=== PATIENT | male | born 1940 ===

== ENCOUNTER → 2018-10-24 | Outpatient (CLI) | payer MEDICARE, OTHER | END | disposition home or self-care (01) | LOC: PLD 10:06 → LAB SHORT 10:06 | DX: L82.1 Other seborrheic keratosis (principal) | CPT/HCPCS: 88305 ==

== ENCOUNTER → 2019-10-24 | Outpatient (CLI) | payer MEDICARE, OTHER | END | disposition home or self-care (01) | LOC: PLD 11:42 → LAB SHORT 11:42 | DX: L82.1 Other seborrheic keratosis (principal) | CPT/HCPCS: 88305 ==

== ENCOUNTER 2021-08-16 12:39 | Inpatient (IN) | payer MEDICARE, OTHER ==
[~2021-08-16] VITALS: Ht 182.9 cm; Wt 86.5 kg
[2021-08-16 14:11] LABS: Hematocrit 35.3 % (37.0-53.0); Hemoglobin 11.8 g/dL (13.5-17.5); Mean Corpuscular HGB Conc 33.4 g/dL (31.5-36.5); Mean Corpuscular Volume 87 fL (80-100); Mean Platelet Volume 11.7 fL (9.1-12.4); Platelet Count 169 K/mm3 (150-400); RDW Coefficient Variation 16.3 % (11.7-14.2); RDW Standard Deviation 51.8 fL (35.1-46.3); Red Blood Cell Count 4.07 M/mm3 (4.30-5.90); White Blood Cell Count 9.44 K/mm3 (4.00-11.30)
[2021-08-16 14:38] LABS: Albumin, Blood 3.5 g/dL (3.4-5.0); Bilirubin, Total 0.5 mg/dL (0.1-1.0); Bun/Creatinine Ratio 29.9 (12.0-20.0); Calcium, Blood 8.5 mg/dL (8.5-10.1); Creatinine, Blood 2.11 mg/dL (0.60-1.20); Globulin, Blood 3.6 g/dL (2.2-4.0); Potassium, Blood 4.9 mmol/L (3.5-5.5); Total Protein, Blood 7.1 g/dL (6.4-8.2)
[2021-08-16 15:48] LABS: International Normalized Ratio 1.17; Prothrombin Time Results 12.2 Sec (9.7-11.5)
[2021-08-16 16:14] LABS: Influenza A, PCR NEGATIVE (NEGATIVE); Influenza B, PCR NEGATIVE (NEGATIVE); Resp Syncytial Virus, PCR NEGATIVE (NEGATIVE); SARS-Cov-2 (COVID-19) PCR, MMC NEGATIVE (NEGATIVE)
[2021-08-16] MEDS ORDERED: ATOR20 PO (17:53)
[2021-08-16] MEDS ORDERED: LOSARTAN-HCTZ1 EAC5 PO (17:55)
[2021-08-16] MEDS ORDERED: OMEP20ER PO (17:55)
[2021-08-16] MEDS ORDERED: Naproxen Sodiu220 MG PO (17:56)
[2021-08-16] MEDS ORDERED: CENTRUM SILVER1 EAC2 PO (17:57)
[2021-08-16] MEDS ORDERED: OCUVITE PO (17:57)
--- NOTE | 2021-08-16 19:00 | NUR ---
ADMIT NOTE PT TO ROOM AT APPROX 1250, DIRECTLY ADMITTED PER DR LUNA. PT ORIENTED TO ROOM AND CALL LIGHT. EDUCATED ON FALL RISK. PER TELE PT 3RD DEGREE HEART BLOCK, ASSYMPTOMATIC AT THIS TIME. ELEVATED BP NOTE, DR LUNA NOTIFIED NEW ORDER FOR HYDRALAZINE. PT A&Ox4; [place]; CALM AND COOPERATIVE WITH CARE. PT DENIES PAIN, CHEST PAIN, SOB, [place] AND DIZZINESS. PLANS FOR NPO AT ME FOR PACEMAKER PLACEMENT TOMORROW. OTHER VSS. NO OTHER ACUTE CHANGES NOTED. REPORT GIVEN TO ONCOMING RN.
--- NOTE | 2021-08-17 00:33 | NUR ---
CHEST DISCOMFORT AT 0000 PT REPORTED HE HAD BEEN HAVING NEW ONSET 4/10 MID STERNUM CHEST DISCOMFORT FOR PAST HR, REPORTED IT FELT IF HE WAS LYING ON A ROCK. SPO2 @88% ON RA, PLACED PT ON 2L O2. PERFORMED EKG, NO ST CHANGES NOTED. PT ALSO HAD EPISODE OF HEMOPTYSIS WHILE EKG BEING PERFORMED. INFORMED DR LUNA OF NEW CHANGES c PT & NO NEW ORDERS GIVEN. WILL CONTINUE TO MONITOR.
--- NOTE | 2021-08-17 05:58 | NUR ---
SHIFT SUMMARY AOX4. TELE: 3RD DEGREE HB @40. TELE REPORTED PT HAVING OCCASIONAL EPISODES OF ST DEPRESSION & THEN CONVERTING OUT, SENT RHYTHM STRIPS, IN CHART. EKG DONE & NO CHANGES NOTED. HAS BECOME MORE SOB c MINIMAL EXERTION T/O NIGHT, INCLUDING MOVING TO SIDE OF BED. SPO2 @84-88% ON RA. RR REACHING 30BPM DURING EXERTION. PLACED ON 2L O2. LS COARSE T/O. HAD MULTIPLE EPISODES BRIGHT AMMY RED HEMOPTYSIS, MODERATE AMOUNT. REPORTS NOT COUGHING UP BLOOD BEFORE COMING TO HOSPITAL. REPORTS 2-12/19 MIDSTERNUM CP. DENIES N/V OR DIZZINESS. BEEN NPO SINCE MIDNIGHT FOR PACKEMAKER PLACEMENT TODAY. HYDRALAZINE GIVEN PRN FOR HTN PER EMAR. CALL LIGHT IN REACH. WCTM UNTIL DAY NURSE ASSUMES CARE.
--- NOTE | 2021-08-17 07:18 | NUR ---
patient taken to laborer wrecking and salvaging
[2021-08-17 10:24] LABS: BASOPHILS ABSOLUTE AUTO 0.03 K/mm3 (0.00-0.23); BASOPHILS PERCENT AUTO 0 % (0-2); EOSINOPHILS PERCENT AUTO 0 % (0-6); Hematocrit 36.7 % (37.0-53.0); Hemoglobin 12.5 g/dL (13.5-17.5); IMMATURE GRAN ABSOLUTE AUTO 0.23 K/mm3 (0.00-0.10); IMMATURE GRAN PERCENT AUTO 1 % (0-1); LYMPHOCYTES PERCENT AUTO 5 % (21-46); MONOCYTES ABSOLUTE AUTO 1.23 K/mm3 (0.16-1.47); MONOCYTES PERCENT AUTO 8 % (4-13); Mean Corpuscular HGB Conc 34.1 g/dL (31.5-36.5); Mean Corpuscular Volume 85 fL (80-100); Mean Platelet Volume 11.4 fL (9.1-12.4); NEUTROPHILS PERCENT AUTO 86 % (41-73); NRBC ABSOLUTE 0.02 K/mm3 (0.00-0.02); NRBC Auto 0.1 /100 WBC (0.0-0.2); Platelet Count 164 K/mm3 (150-400); RDW Coefficient Variation 16.5 % (11.7-14.2); RDW Standard Deviation 50.9 fL (35.1-46.3); Red Blood Cell Count 4.31 M/mm3 (4.30-5.90); White Blood Cell Count 16.09 K/mm3 (4.00-11.30)
[2021-08-17 10:41] LABS: Bun/Creatinine Ratio 27.9 (12.0-20.0); Creatinine, Blood 2.47 mg/dL (0.60-1.20); Potassium, Blood 4.4 mmol/L (3.5-5.5)
[2021-08-17 11:43] LABS: Source, Urine Clean Catch
[2021-08-17 11:46] LABS: Appearance, Urine Clear (Clear); Bilirubin, Urine Neg (Neg); Blood, Urine Neg (Neg); Color, Urine Yellow (P-Yellow); Glucose Qualitative, Urine Neg (Neg); Ketones, Urine Neg (Neg); Leukocyte Esterase, Urine Neg (Neg); Nitrite, Urine Neg (Neg); Protein, Urine 3+ (Neg); Urobilinogen, Urine NORM (Normal)
[2021-08-17 12:02] LABS: Bacteria Few /hpf; Red Blood Cells, Urine 0-2 /hpf (0-2); Spermatozoa Rare /hpf; Squamous Epithelial Cells Rare /hpf (Few); White Blood Cells, Urine 0-2 /hpf (0-5)
[2021-08-17 14:09] LABS: Source, Urine Catheter
[2021-08-17 14:21] LABS: Appearance, Urine Clear (Clear); Bilirubin, Urine Neg (Neg); Blood, Urine Neg (Neg); Color, Urine Yellow (P-Yellow); Glucose Qualitative, Urine Neg (Neg); Ketones, Urine Neg (Neg); Leukocyte Esterase, Urine Neg (Neg); Nitrite, Urine Neg (Neg); Protein, Urine 2+ (Neg); Urobilinogen, Urine NORM (Normal)
[2021-08-17 15:08] LABS: Amorphous Light (0-Heavy); Bacteria Rare /hpf; Red Blood Cells, Urine 0-2 /hpf (0-2); Squamous Epithelial Cells Rare /hpf (Few); White Blood Cells, Urine 0-2 /hpf (0-5)
--- NOTE | 2021-08-17 18:05 | NUR ---
SHIFT SUMMARY PT TO DIRECTOR OF PHILANTHROPY THIS AM; BACK TO ROOM, BP ELEVATED, NOTIFIFED DR LUNA. PT A&Ox4; CALM AND COOPERATIVE WITH CARE. PT DENIES PAIN, CHEST PAIN, NAUSEA AND DIZZINESS. NEW ORDER FOR VENTURA CATHETER, PLACED THIS AFTERNOON, NOTED RETENTION ON RENAL ULTRA SOUND. PT CONTINUES TO HAVE HEMAPTYSIS BUT LESS FREQUENT. SPO2 >90% ON 2-3L O2, LS DIMINISHED T/O. LEFT CHEST WALL DRESSING C/D/I; NO BLEEDING, BRUISING OR HEMATOMA NOTED. PT RECIEVING IV ANTIBIOTICS AND LASIX. OTHER VSS. NO OTHER ACUTE CHANGES NOTED. WILL CONTINUE TO MONITOR UNITL REPORT GIVEN TO ONCOMING RN.
[2021-08-18 04:00] LABS: BASOPHILS ABSOLUTE AUTO 0.01 K/mm3 (0.00-0.23); BASOPHILS PERCENT AUTO 0 % (0-2); EOSINOPHILS PERCENT AUTO 0 % (0-6); Hematocrit 31.9 % (37.0-53.0); Hemoglobin 10.8 g/dL (13.5-17.5); IMMATURE GRAN ABSOLUTE AUTO 0.09 K/mm3 (0.00-0.10); IMMATURE GRAN PERCENT AUTO 1 % (0-1); LYMPHOCYTES ABSOLUTE AUTO 1.13 K/mm3 (0.84-5.20); LYMPHOCYTES PERCENT AUTO 7 % (21-46); MONOCYTES ABSOLUTE AUTO 1.48 K/mm3 (0.16-1.47); MONOCYTES PERCENT AUTO 10 % (4-13); Mean Corpuscular HGB 28.4 pg (26.0-34.0); Mean Corpuscular HGB Conc 33.9 g/dL (31.5-36.5); Mean Corpuscular Volume 84 fL (80-100); Mean Platelet Volume 11.9 fL (9.1-12.4); NEUTROPHILS ABSOLUTE AUTO 12.57 K/mm3 (1.96-9.15); NEUTROPHILS PERCENT AUTO 82 % (41-73); Platelet Count 133 K/mm3 (150-400); RDW Coefficient Variation 16.4 % (11.7-14.2); RDW Standard Deviation 49.4 fL (35.1-46.3); White Blood Cell Count 15.28 K/mm3 (4.00-11.30)
[2021-08-18 04:23] LABS: Bun/Creatinine Ratio 30.2 (12.0-20.0); Calcium, Blood 8.8 mg/dL (8.5-10.1); Creatinine, Blood 2.52 mg/dL (0.60-1.20); Magnesium, Blood 1.7 mg/dL (1.6-2.4); Potassium, Blood 4.3 mmol/L (3.5-5.5)
--- NOTE | 2021-08-18 05:27 | NUR ---
SHIFT SUMMARY NO ACUTE CHANGES THIS SHIFT. PT A&OX4, [place]. SP02>90% ON 4L NC. NO COUGHING NOTED. TELEMETRY READS V PACED, HR 80'S. PT DENIED CP/PRESSURE. PT HAS NEW PACER, SITE C/D, NO BRUISING, BLEEDING. PT WORE ARM SLING ALL NIGHT. VENTURA CATHETER DRAINING CLEAR YELLOW URINE TO GRAVITY. NO BM THIS SHIFT. PT DENIED PAIN. ABX INFUSED PER EMAR. CALL LIGHT IN REACH. WILL GIVE REPORT TO ONCOMING NURSE.
--- NOTE | 2021-08-18 17:30 | NUR ---
SHIFT SUMMARY PT A&Ox4; CALM AND COOPERATIVE WITH CARE. PT RESTING IN BED FOR MAJORITY OF SHIFT. UP TO CHAIR FOR MEALS. PT DENIES PAIN, CHEST PAIN, NAUSEA AND DIZZINESS. SOB WITH EXERTION; SPO2 >90% ON 4L O2 VIA NC, ATTEMTPED TO TITRATE TO 2-3L AND PT WOULD DESATURATE. LS DIMINISHED T/O. PT RECEIVING IV LASIX. POST OP ANTIBIOTICS D/C PER DR LUNA. PT HAS HAD LOW GRADE FEVER THIS AFTERNOON AND EVENING; NOTIFIED DR HARDING, NEW ORDER FOR ADDITIONAL ANTIBIOTICS. OTHER VSS. NO OTHER ACUTE CHANGES NOTED. WILL CONTINUE TO MONITOR UNITL REPORT GIVEN TO ONCOMING RN.
--- NOTE | 2021-08-18 20:39 | NUR ---
ASSUMPTION OF CARE NOTE PT ALERT AND ORIENTED X4, HARD OF HEARING. SPO2 IN 90'S VIA 4L NC. PACER PLACEMENT IN LEFT CHEST IS COVERED WITH DRESSING AND ARM IS IN SLING, DRESSING IS DRY/CLEAN/INTACT. VENTURA CATHETER IS IN PLACE AND DRAINING LIGHT/CLEAR YELLOW OUTPUT WITH GRAVITY. CALL LIGHT IN REACH. PT NOW WATCHING TV. WILL CONTINUE TO MINITOR.
[2021-08-19 05:17] LABS: BASOPHILS ABSOLUTE AUTO 0.03 K/mm3 (0.00-0.23); BASOPHILS PERCENT AUTO 0 % (0-2); EOSINOPHILS ABSOLUTE AUTO 0.03 K/mm3 (0.00-0.68); EOSINOPHILS PERCENT AUTO 0 % (0-6); Hematocrit 34.2 % (37.0-53.0); Hemoglobin 11.6 g/dL (13.5-17.5); IMMATURE GRAN ABSOLUTE AUTO 0.08 K/mm3 (0.00-0.10); IMMATURE GRAN PERCENT AUTO 1 % (0-1); LYMPHOCYTES ABSOLUTE AUTO 1.39 K/mm3 (0.84-5.20); LYMPHOCYTES PERCENT AUTO 8 % (21-46); MONOCYTES ABSOLUTE AUTO 1.84 K/mm3 (0.16-1.47); MONOCYTES PERCENT AUTO 11 % (4-13); Mean Corpuscular HGB 28.6 pg (26.0-34.0); Mean Corpuscular HGB Conc 33.9 g/dL (31.5-36.5); Mean Corpuscular Volume 84 fL (80-100); Mean Platelet Volume 11.5 fL (9.1-12.4); NEUTROPHILS PERCENT AUTO 80 % (41-73); Platelet Count 134 K/mm3 (150-400); RDW Coefficient Variation 16.3 % (11.7-14.2); RDW Standard Deviation 49.7 fL (35.1-46.3); Red Blood Cell Count 4.05 M/mm3 (4.30-5.90); White Blood Cell Count 16.67 K/mm3 (4.00-11.30)
[2021-08-19 06:02] LABS: Albumin, Blood 2.9 g/dL (3.4-5.0); Anion Gap 11 mmol/L (6-16); Blood Urea Nitrogen 79 mg/dL (8-24); Bun/Creatinine Ratio 34.1 (12.0-20.0); CO2, Blood 22 mmol/L (21-32); Calcium, Blood 8.7 mg/dL (8.5-10.1); Chloride, Blood 105 mmol/L (98-108); Creatinine, Blood 2.32 mg/dL (0.60-1.20); Glomerular Filtration Rate 27 (60-); Glucose, Blood 100 mg/dL (70-99); Phosphorus, Blood 4.7 mg/dL (2.5-4.9); Sodium, Blood 138 mmol/L (136-145)
--- NOTE | 2021-08-19 06:07 | NUR ---
SHIFT SUMMARY PT IS ALERT AND ORIENTED X4. SPO2 IS IN 90'S VIA 4L NC. VITAL SIGNS STABLE. PT DENIED CHEST PAIN/PRESSURE T/O SHIFT. TELE MONITORING IS IN PLACE. DRESSING OVER LEFT PACER SITE REMAINS DRY/CLEAN/INTACT. VENTURA CATHETER IN PLACE AND DRAINING WITH GRAVITY LIGHT YELLOW OUTPUT. POWERGLIDE IN LEFT AC INFUSING KVO, POWERGLIDE DOES NOT DRAW. NO OTHER ACUTE CHANGES NOTED. WILL CONTINUE TO MONITOR. CALL LIGHT IN REACH.
[2021-08-19 11:00] LABS: Influenza A, PCR NEGATIVE (NEGATIVE); Influenza B, PCR NEGATIVE (NEGATIVE); Resp Syncytial Virus, PCR NEGATIVE (NEGATIVE); SARS-Cov-2 (COVID-19) PCR, MMC NEGATIVE (NEGATIVE)
--- NOTE | 2021-08-19 18:15 | NUR ---
PT REMAINS A&OX4. VSS. AFEBRILE. C/O R HAND PAIN- TYLENOL X1 WITH ADEQUATE CONTROL OF PAIN PER PT. FC MAINTAINED WITH AUO. NO BM. D/C HELD D/T INCREASING O2 REQUIREMENTS- CXR, LAB WORK, AND NUC MED SCAN COMPLETED- SEE RESULTS. ANTICOAGULANTS ADJUSTED. FREQUENT ROUNDS TO ENSURE PT SAFETY. PT IN NO APPARENT DISTRESS AT THIS TIME. WILL CONTINUE TO MONITOR UNTIL TRANSFER OF CARE TO ONCOMING RN.
[2021-08-19 19:33] LABS: Anti-Xa UFH, PHA Monitoring <0.10 IU/mL; International Normalized Ratio 1.22; Prothrombin Time Results 12.6 Sec (9.7-11.5)
--- NOTE | 2021-08-20 05:34 | NUR ---
WHEN AWAKE PATIENT WAS MAINTAINING O2 SATURATION AT 92% ON 4L O2 NC. PT C/O PAIN IN HANDS R/T GOUT, POORLY CONTROLLED WITH TYLENOL, ADMINISTERED ORDERED OXYCODONE, PATIENT REPORTS SOME RELIEF. 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 PLAN FOR DAILY UPDATES- WILL RELAY TO DAY TEAM. IS ALSO CONCERNED ABOUT PATIENT POOR PAIN MANAGEMENT. PLAN TO CONTINUE WITH OXYCODONE NEEDED. PATIENT RECIEVED A SECAND DOSE OF 5MG OXYCODONE THIS SHIFT. EASLIY AROUSABLE THROUGHOUT SHIFT. RR 18-22, BUT O2 SATURATION 85-89% ON 4L O2 NC, INCREASED TO 6L WITHOUT IMPROVEMENT. PT IS MOUTH BREATHING SO SWITCHED TO VENTIMASK. O2 SAT CONTINUES TO DIP TO 86-87% REQUIRING SLOW TITRATION UP TO 10L FIO 45% VENTI MASK, AND HOB ELEVATED TO HIGH ASTUDILLO POSITION, WITH THESE MODIFICATION O2 SAT MAINTAINING 88-91%. LUNG SOUNDS CLEAR. PT IS DIURESING. RESPIRATORY THERAPY IS AWARE. O2 SATURATION INCREASES TO 92-93% WHEN PATIENT IS AWAKE, WILL ATTEMPT TO WEAN O2 WHEN PATEINT WAKES UP. PT REPORTS PAIN IS WELL MANAGED AND HE IS GETTING VERY RESTFUL SLEEP. RESULTED IN O2 SAT IS MOUTH BREATHING SO SWITCHED TO VENTIMASK
[2021-08-20 08:25] LABS: BASOPHILS ABSOLUTE AUTO 0.03 K/mm3 (0.00-0.23); BASOPHILS PERCENT AUTO 0 % (0-2); EOSINOPHILS ABSOLUTE AUTO 0.08 K/mm3 (0.00-0.68); EOSINOPHILS PERCENT AUTO 0 % (0-6); Hematocrit 34.4 % (37.0-53.0); Hemoglobin 11.7 g/dL (13.5-17.5); IMMATURE GRAN ABSOLUTE AUTO 0.09 K/mm3 (0.00-0.10); IMMATURE GRAN PERCENT AUTO 1 % (0-1); LYMPHOCYTES ABSOLUTE AUTO 1.17 K/mm3 (0.84-5.20); LYMPHOCYTES PERCENT AUTO 7 % (21-46); MONOCYTES ABSOLUTE AUTO 1.92 K/mm3 (0.16-1.47); MONOCYTES PERCENT AUTO 11 % (4-13); Mean Corpuscular HGB 28.5 pg (26.0-34.0); Mean Corpuscular Volume 84 fL (80-100); Mean Platelet Volume 10.7 fL (9.1-12.4); NEUTROPHILS ABSOLUTE AUTO 14.79 K/mm3 (1.96-9.15); NEUTROPHILS PERCENT AUTO 82 % (41-73); Platelet Count 156 K/mm3 (150-400); RDW Standard Deviation 49.1 fL (35.1-46.3); Red Blood Cell Count 4.11 M/mm3 (4.30-5.90); White Blood Cell Count 18.08 K/mm3 (4.00-11.30)
[2021-08-20 08:59] LABS: Albumin, Blood 2.7 g/dL (3.4-5.0); Anion Gap 11 mmol/L (6-16); Blood Urea Nitrogen 84 mg/dL (8-24); Bun/Creatinine Ratio 39.8 (12.0-20.0); CO2, Blood 21 mmol/L (21-32); Calcium, Blood 8.4 mg/dL (8.5-10.1); Chloride, Blood 104 mmol/L (98-108); Creatinine, Blood 2.11 mg/dL (0.60-1.20); Glomerular Filtration Rate 30 (60-); Glucose, Blood 117 mg/dL (70-99); Phosphorus, Blood 4.7 mg/dL (2.5-4.9); Potassium, Blood 3.7 mmol/L (3.5-5.5); Sodium, Blood 136 mmol/L (136-145)
--- NOTE | 2021-08-20 09:45 | NUR ---
HEPARIN GTT ALERTED DR HARDING THAT HEPARIN GTT WAS NOT STARTED AT 2200 BUT UPON DAY SHIFT RN TIA REALIZING THE DELAYED TIME AT 0740. NO NEW ORDERS AT THIS TIME.
--- NOTE | 2021-08-20 16:07 | NUR ---
PT REMAINS A&OX4. VSS. AFEBRILE. NO C/O PAIN. FC MAINTAINED WITH AUO. NO BM. TOLERATING CURRENT DIET. BLE VENOUS DUPLEX AND CT COMPLETED- SEE RESULTS. HEPARIN GTT STARTED IN AM- NO S/S OF BLEEDING NOTED. UNABLE TO WEAN O2 SETTINGS- DENIES [place]. UPDATED VIA PHONE CALL IN AM AND AT BEDSIDE DURING VISITING HOURS REGARDING POC. FREQUENT ROUNDS TO ENSURE PT SAFETY. PT IN NO APPARENT DISTRESS AT THIS TIME. WILL CONTINUE TO MONITOR UNTIL TRANSFER OF CARE TO ONCOMING RN.
--- NOTE | 2021-08-21 06:23 | NUR ---
PT IS A/OX4 THROUGHOUT SHIFT. AGAIN REQUIRING VENTIMASK AT 10L O2 TO MAINTAIN O2 SAT ABOVE 88%. AT ABOUT 0600 PT HAD 9 BEATS OF VTACH, ASYMPTOMACTIC.
--- NOTE | 2021-08-21 06:56 | NUR ---
PT REQUIRING 10L VENTIMASK AGAIN OVER NIGHT DUE TO SATURATION OXYGEN DROPPING TO 86-87% HIS SHIFT.
[2021-08-21 08:48] LABS: BASOPHILS ABSOLUTE AUTO 0.02 K/mm3 (0.00-0.23); BASOPHILS PERCENT AUTO 0 % (0-2); EOSINOPHILS PERCENT AUTO 0 % (0-6); Hemoglobin 11.6 g/dL (13.5-17.5); IMMATURE GRAN ABSOLUTE AUTO 0.09 K/mm3 (0.00-0.10); IMMATURE GRAN PERCENT AUTO 1 % (0-1); LYMPHOCYTES ABSOLUTE AUTO 1.09 K/mm3 (0.84-5.20); LYMPHOCYTES PERCENT AUTO 7 % (21-46); MONOCYTES ABSOLUTE AUTO 1.27 K/mm3 (0.16-1.47); MONOCYTES PERCENT AUTO 8 % (4-13); Mean Corpuscular HGB Conc 34.1 g/dL (31.5-36.5); Mean Corpuscular Volume 85 fL (80-100); Mean Platelet Volume 11.3 fL (9.1-12.4); NEUTROPHILS ABSOLUTE AUTO 13.46 K/mm3 (1.96-9.15); NEUTROPHILS PERCENT AUTO 85 % (41-73); Platelet Count 166 K/mm3 (150-400); RDW Coefficient Variation 16.1 % (11.7-14.2); RDW Standard Deviation 49.9 fL (35.1-46.3); White Blood Cell Count 15.93 K/mm3 (4.00-11.30)
[2021-08-21 09:08] LABS: Albumin, Blood 2.6 g/dL (3.4-5.0); Anion Gap 11 mmol/L (6-16); Blood Urea Nitrogen 93 mg/dL (8-24); Bun/Creatinine Ratio 40.3 (12.0-20.0); CO2, Blood 21 mmol/L (21-32); Calcium, Blood 8.3 mg/dL (8.5-10.1); Chloride, Blood 103 mmol/L (98-108); Creatinine, Blood 2.31 mg/dL (0.60-1.20); Glomerular Filtration Rate 27 (60-); Glucose, Blood 152 mg/dL (70-99); Magnesium, Blood 2.6 mg/dL (1.6-2.4); Phosphorus, Blood 5.3 mg/dL (2.5-4.9); Potassium, Blood 3.7 mmol/L (3.5-5.5); Sodium, Blood 135 mmol/L (136-145)
--- NOTE | 2021-08-21 17:26 | NUR ---
PT REMAINS A&OX4. VSS. NO C/O PAIN. AFEBRILE. AUO. NO BM. TOLERATING CURRENT DIET. HEPARIN GTT DC'D- SWITCHED TO SC, NO S/S OF BLEEDING NOTED. UNABLE TO TITRATE SUPPLEMENTAL O2. FREQUENT ROUNDS TO ENSURE PT SAFETY. PT IN NO APPARENT DISTRESS AT THIS TIME. WILL CONTINUE TO MONITOR UNTIL TRANSFER OF CARE TO ONCOMING RN.
[2021-08-22 03:38] LABS: BASOPHILS ABSOLUTE AUTO 0.01 K/mm3 (0.00-0.23); BASOPHILS PERCENT AUTO 0 % (0-2); EOSINOPHILS PERCENT AUTO 0 % (0-6); Hematocrit 31.6 % (37.0-53.0); Hemoglobin 10.6 g/dL (13.5-17.5); IMMATURE GRAN ABSOLUTE AUTO 0.08 K/mm3 (0.00-0.10); IMMATURE GRAN PERCENT AUTO 1 % (0-1); LYMPHOCYTES ABSOLUTE AUTO 0.62 K/mm3 (0.84-5.20); LYMPHOCYTES PERCENT AUTO 5 % (21-46); MONOCYTES ABSOLUTE AUTO 0.84 K/mm3 (0.16-1.47); MONOCYTES PERCENT AUTO 6 % (4-13); Mean Corpuscular HGB 28.6 pg (26.0-34.0); Mean Corpuscular HGB Conc 33.5 g/dL (31.5-36.5); Mean Corpuscular Volume 85 fL (80-100); Mean Platelet Volume 11.1 fL (9.1-12.4); NEUTROPHILS PERCENT AUTO 88 % (41-73); Platelet Count 178 K/mm3 (150-400); RDW Standard Deviation 49.2 fL (35.1-46.3); Red Blood Cell Count 3.71 M/mm3 (4.30-5.90); White Blood Cell Count 13.15 K/mm3 (4.00-11.30)
[2021-08-22 04:02] LABS: Bun/Creatinine Ratio 42.7 (12.0-20.0); Calcium, Blood 8.6 mg/dL (8.5-10.1); Creatinine, Blood 2.27 mg/dL (0.60-1.20); Potassium, Blood 4.3 mmol/L (3.5-5.5)
--- NOTE | 2021-08-22 04:11 | NUR ---
PT IS ON 7L O2 NC AT START OF SHIFT. ABLE TO WEAN DOWN TO 5L MAINTING O2 SAT AT 90% WITH OCCASIONAL DIPS LOW 87%, NONSUSTAINED. REMOVED VENTURA WITH SUCCESSFUL VOID THIS MORNING. PT REPORTS FEELING GREAT AND EAGER TO DISCHARGE.
[2021-08-22] MEDS ORDERED: ATEN25 PO (14:32)
[2021-08-22] MEDS ORDERED: CEFP200 PO (14:33)
[2021-08-22] MEDS ORDERED: DILTIAZEM PO (14:34)
[2021-08-22] MEDS ORDERED: FURO40 PO (14:34)
[2021-08-22] MEDS ORDERED: GUAI600T33 PO (14:34)
[2021-08-22] MEDS ORDERED: LOSA50 PO (14:35)
[2021-08-22] MEDS ORDERED: Prednisone10 MG PO (14:36)
[2021-08-22] MEDS ORDERED: SENNA LAXATIVE8.6 MG PO (14:36)
[2021-08-22] MEDS ORDERED: TAMS.4ER PO (14:36)
[2021-08-22] MEDS ORDERED: PROBIOTIC1 EA13 PO (14:37)
[2021-08-22] MEDS ORDERED: IPRAT-ALBUT 0.5-3 ML INH (14:38)
--- NOTE | 2021-08-22 19:04 | NUR ---
REBECCA ARRIVED, DISCUSSED PORTABLE O2 USE, AND WILL BE SETTING UP O2 IN THE HOME TODAY WELL. DC THE POWERGLIDE, PATIENT NO LONGER HAVING CHEST PAIN, DENIES SOB, EXERTION NC 1-3 L AT REST 1 IF NEEDED. INCREASED STRENGTH IN LOWER EXTREMS, PATIENT WAS WHEELED VIA WC AND NC O2 3 L BY MECHANICAL ARTIST APPROXIMATELY 18[address] IN FRONT OF SIDE ENTRANCE BY ED. COMPLETE UNDERSTANDING OF DC INSTRUCTIONS AND NO FURTHER QUESTIONS COMMENTS OR CONCERNS, GAVE 1 DOSE OF [facility] IS CL[facility]. PACEMAKE AND INSTRUCTIONS,[facility] CARDS INSIDE DISHCARGE FOLDER, WHICH PLACED IN CAR.
== END 2021-08-22 18:45 | disposition home or self-care (01) | DRG 242 ==
LOC: PCU 12:39
PROVIDERS: Internal Medicine; Nurse Practitioner Acute Care; ADMIT Internal Medicine Cardiovascular Disease
PROC: 0JH606Z Insertion of Pacemaker, Dual Chamber into Chest Subcutaneous Tissue and Fascia, Open Approach (ICD-10-PCS; principal; 2021-08-17)
PROC: 02HK3JZ Insertion of Pacemaker Lead into Right Ventricle, Percutaneous Approach (ICD-10-PCS; 2021-08-17)
PROC: 02H63JZ Insertion of Pacemaker Lead into Right Atrium, Percutaneous Approach (ICD-10-PCS; 2021-08-17)
DX: I44.2 Atrioventricular block, complete (principal); J96.01 Acute respiratory failure with hypoxia; J18.9 Pneumonia, unspecified organism; R04.2 Hemoptysis; N17.9 Acute kidney failure, unspecified
CPT/HCPCS: 0241U; 33208; 36415; 71046; 71250; 76770; 78580; 80048; 80053; 80069; 81001; 83735; 83880; 84145; 84550; 85025; 85027; 85379; 85520; 85610; 85730; 87070; 87205; 93005; 93010; 93306; 93970; 94640; 94760; 94761; 99152; 99153; A9270; A9540; C1751; C1785; C1894; C1898; G0103; J0360; J0696; J1644; J1940; J2250; J3010; J3370; J7040; J7050; J7512